=== PATIENT | female | born 1965 | race Caucasian/White ===

== ENCOUNTER 2016-12-29 12:27 | Emergency (ER) | payer BC ==
[2016-12-29 13:49] VITALS: BP 156/62
--- NOTE | 2016-12-29 14:11 | UC ---
Complaint Female HPI - HPI Summary HPI Summary: urinary urgency, dysuria and lower abdominal fullness for 2 days, patient has taken azo twice for pain. - History Of Current Complaint Chief Complaint: UCGU Stated Complaint: URINARY COMPLAINT Time Seen by Provider: 12/29/16 13:44 Hx Obtained From: Patient Hx Last Menstrual Period: 11/06 ?: No Onset/Duration: Sudden Onset, Lasting Days Timing: Constant Severity Initially: Mild Severity Currently: Mild Character: Dull, Burning, Cramping Aggravating Factor(s): Urination Alleviating Factor(s): Position - Allergies/Home Medications Allergies/Adverse Reactions: Allergies Allergy/AdvReac Type Severity Reaction Status Date / Time hay fever Allergy Coughing Uncoded 12/29/16 13:49 Home Medications: Home Medications LevoCETirizine TAB (NF) [Xyzal TAB (NF)] 5 mg PO DAILY 12/29/16 [History Confirmed 12/29/16] PMH/Surg Hx/FS Hx/Imm Hx Previously Healthy: Yes Cardiovascular History Of: Denies: Pacemaker/ICD - Surgical History Surgical History: Yes Surgery Procedure, Year, and Place: Right Rotator Cuff, 2011, [place]; , 1989, [facility] - Family History Known Family History: Positive: None Negative: Hypertension - Social History Alcohol Use: None Substance Use Type: None Smoking Status (MU): Former Smoker - Immunization History Most Recent Influenza Vaccination: Not the Season Review of Systems Constitutional: Negative Skin: Negative Eyes: Negative ENT: Negative Respiratory: Negative Cardiovascular: Negative Gastrointestinal: Negative Genitourinary: Dysuria, Frequency, Urgency Motor: Negative Neurovascular: Negative Musculoskeletal: Negative Neurological: Negative Psychological: Negative All Other Systems Reviewed And Are Negative: Yes Physical Exam Triage Information Reviewed: Yes Appearance: Well-Appearing, Well-Nourished, Pain Distress Vital Signs: Initial Vital Signs Temp 98.9 F 12/29/16 13:44 Pulse 73 12/29/16 13:44 Resp 14 12/29/16 13:44 BP 156/62 12/29/16 13:44 Pulse Ox 99 12/29/16 13:44 Vital Signs Reviewed: Yes Eye Exam: Normal Eyes: Positive: Conjunctiva Clear ENT Exam: Normal ENT: Positive: Hearing grossly normal, Pharynx normal, TMs normal Dental Exam: Normal Neck exam: Normal Neck: Positive: Supple, Nontender, No Lymphadenopathy Respiratory Exam: Normal Respiratory: Positive: Chest non-tender, Lungs clear, Normal breath sounds Cardiovascular Exam: Normal Cardiovascular: Positive: RRR, No Murmur Abdomen Description: Positive: Nontender, CVA Tenderness (R) - neg, CVA Tenderness (L) - neg Bowel Sounds: Positive: Present Musculoskeletal Exam: Normal Musculoskeletal: Positive: Strength Intact, ROM Intact, No Edema Neurological Exam: Normal Neurological: Positive: Alert Psychological Exam: Normal Skin Exam: Normal Complaint Female Dx - Course Course Of Treatment: hx obtained, exam performed, meds reveiwed, urine culture collected, started on keflex - Differential Dx/Diagnosis Differential Diagnosis/HQI/PQRI: Sexually Transmitted Disease, Ureteral Stone, Urinary Tract Infection Provider Diagnoses: UTI Discharge - Discharge Plan Condition: Stable Disposition: HOME Patient Education Materials: Urinary Tract Infection in Women (ED) Additional Instructions: Take the medication as prescribed, stop the azo in 24-048 hrs to make sure antibiotic is working. CUlture results will be back in about 2 days, we will call if there needs to be any changes to your treatment.
== END 2016-12-29 14:18 | disposition home or self-care (01) ==
LOC: UCCORT 12:27
DX: N39.0 Urinary tract infection, site not specified (principal); Z87.891 Personal history of nicotine dependence
CPT/HCPCS: 87086; 99212; G0463

== ENCOUNTER 2017-05-22 09:24 | Emergency (ER) | payer BC ==
[2017-05-22 09:51] VITALS: BP 130/98
--- NOTE | 2017-05-22 10:03 | UC ---
Respiratory Complaint HPI - HPI Summary HPI Summary: 4-5 days of coughing getting worse with chest tightness. - History of Current Complaint Chief Complaint: UCRespiratory Stated Complaint: CHEST CONGESTION Time Seen by Provider: 05/22/17 09:53 Hx Obtained From: Patient Hx Last Menstrual Period: 11/06 ?: No Onset/Duration: Gradual Onset, Worse Since - onset Severity Initially: Mild Severity Currently: Moderate Character: Cough: Nonproductive - but occasionally productive Aggravating Factors: Deep Breaths, Recumbent Position Alleviating Factors: Nothing Associated Signs And Symptoms: Positive: Dyspnea, Pleuritic Chest Pain - rarely sharp pain across the chest with coughing fits., Nasal Congestion - with post nasal drip Related History: Seasonal Allergies - Risk Factors Pulmonary Embolism Risk Factors: Negative - Allergies/Home Medications Allergies/Adverse Reactions: Allergies Allergy/AdvReac Type Severity Reaction Status Date / Time hay fever Allergy Coughing Uncoded 05/22/17 09:51 Home Medications: Home Medications Albuterol HFA INHALER* [Ventolin HFA Inhaler*] 2 puff INH Q4H PRN 05/22/17 [ History Confirmed 05/22/17] LevoCETirizine TAB (NF) [Xyzal TAB (NF)] 5 mg PO DAILY 05/22/17 [History Confirmed 05/22/17] Simvastatin [Zocor 5 MG-] 10 mg PO DAILY 05/22/17 [History Confirmed 05/22/17] PMH/Surg Hx/FS Hx/Imm Hx Endocrine History: Diabetes, Dyslipidemia Psychological History: Anxiety - resolved - Surgical History Surgical History: Yes Surgery Procedure, Year, and Place: Right Rotator Cuff, 2011, [place];. C- Section, 1989, [facility] - Family History Known Family History: Positive: Hypertension, Diabetes Negative: Cardiac Disease - Social History Occupation: Employed Full-time Lives: With Family Alcohol Use: Rare Substance Use Type: None Smoking Status (MU): Former Smoker Have You Smoked in the Last Year: No - Immunization History Most Recent Influenza Vaccination: Not the Season Review of Systems Respiratory: Shortness Of Breath, Cough Cardiovascular: Chest Pain All Other Systems Reviewed And Are Negative: Yes Physical Exam Triage Information Reviewed: Yes Appearance: Well-Appearing, No Pain Distress, Well-Nourished Vital Signs: Initial Vital Signs Temp 98.2 F 05/22/17 09:46 Pulse 75 05/22/17 09:46 Resp 14 05/22/17 09:46 BP 130/98 05/22/17 09:46 Pulse Ox 100 05/22/17 09:46 Vital Signs Reviewed: Yes Eyes: Positive: Conjunctiva Clear ENT: Positive: Pharynx normal, Nasal congestion - with allergic changes, TMs normal Neck exam: Normal Respiratory: Positive: Lungs clear, Wheezing - occasional with coughing Cardiovascular Exam: Normal Musculoskeletal Exam: Normal Neurological Exam: Normal Psychological Exam: Normal Skin Exam: Normal UC Diagnostic Evaluation - Laboratory O2 Sat by Pulse Oximetry: 100 Respiratory Course/Dx - Differential Dx/Diagnosis Differential Diagnosis/HQI/PQRI: Asthma, Laryngitis, Lower Resp Infection, Sinusitis Provider Diagnoses: Allergic rhinitis. acute bronchospasm Discharge - Discharge Plan Condition: Stable Disposition: HOME Prescriptions: Montelukast Sodium TAB* [Singulair 10 MG TAB*] 10 mg PO BEDTIME #30 tab predniSONE TAB* [Deltasone TAB*] 20 mg PO DAILY #18 tab Patient Education Materials: Allergic Rhinitis (ED), Bronchospasm (ED), Reactive Airways Disease (ED), Prednisone (By mouth), Montelukast (By mouth) Referrals: Poppy Muller MD [Primary Care Provider] - 2 Weeks (recheck breathing and allergy symptoms.)
== END 2017-05-22 10:31 | disposition home or self-care (01) ==
LOC: UCCORT 09:24
DX: J30.9 Allergic rhinitis, unspecified (principal); J98.01 Acute bronchospasm; E11.9 Type 2 diabetes mellitus without complications; E78.5 Hyperlipidemia, unspecified; Z87.891 Personal history of nicotine dependence
CPT/HCPCS: 99212; G0463

== ENCOUNTER 2017-11-02 08:57 | Emergency (ER) | payer BC ==
--- OUTSIDE RECORDS SUMMARY | 2017-11-02 09:33 | XMS REPORT ---
:1965 External Reference #:[id number] Author Organization [facility] 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 Poppy Muller MD Primary Care Physician Unavailable Payers Type Date Identification Numbers Payment Provider Subscriber Commercial Policy Number: [id number] [facility] Thomas Caicedo PayID: [id number] [address] [place] [address] Problems Date Description Provider Status Onset: 10/18/2017 Hyperlipidemia Poppy Muller MD Active Onset: 10/18/2017 Type 2 diabetes mellitus Poppy Muller MD Active Family History Date Family Member(s) Problem(s) Comments Father due to Accidental () Mother Diabetes Grandmother Diabetes Grandmother Hypertension Social History Type Date Description Comments Marital Status Lives With 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 ETOH Use Occasionally consumes alcohol Smoking Patient denies history of smoking Recreational Drug Use Denies Drug Use Daily Caffeine Patient consumes minimal amounts of caffeine Allergies, Adverse Reactions, Alerts Date Description Reaction Status Severity Comments 08/16/2012 NKDA active Medications Medication Date Status Form Strength Qnty SIG Indications Ordering Provider Allergy 04/06 Active Poppy Injections MD Yohana Simvastatin 01/07 Active Tablets 10mg 30tab take one Poppy s tablet by charly Muller in the MD evening Levocetirizine 00 Active Tablets 5mg 1 by mouth Unknown Dihydrochloride /0000 every day Nasacort Allergy Active Aerosol 55mcg/Act 1 sprays Unknown 24HR /0000 each nare every day Montelukast Active Tablets 10mg 1 daily UrielettiNelly Kristen Simvastatin 10/20 Hx Tablets 20mg 30tab take one s tablet by Yohana, - mouth once MD 01/07 at night cholesterol [place] 11/29 Hx Tablets 5-325mg 60tab 1-2 po q 4 , s hrs prn pain MD Humza Naproxen Ec 08/16 Hx Tablets 375mg 60tab [address] s mouth twice MD Humza a day after meals Cephalexin Hx Capsules 500mg take 1 Unknown capsule by mouth twice a day Immunizations CPT Code Status Date Vaccine Lot # [id number] Given 01/04/2017 Pneumovax Injection [id number] 63835 Given 10/05/2016 Influenza Virus Vaccine Split Virus Use For [id number] Individual 3Yr Older 56081 Given 08/23/2003 flu vaccination [id number] Given 08/23/2003 flu vaccination 93941 Given 07/25/1999 Influenza Virus Whole 28546 Given 07/27/1997 Influenza Virus Vaccine 02526 Given 01/08/1994 DT Vaccine Younger Than 7 Yrs Vital Signs Date Vital Result Comment 10/18/2017 BP Systolic 129 mmHg BP Diastolic 70 mmHg Heart Rate 67 /min Respiratory Rate 14 /min Height 65 inches 5'5" Weight 197.38 lb BMI (Body Mass Index) 32.8 kg/m2 BSA (Body Surface Area) 1.97 m2 O2 % BldC Oximetry 96 % 05/12/2017 BP Systolic Sitting Left Arm 124 mmHg BP Diastolic Sitting Left Arm 72 mmHg Heart Rate 78 /min Respiratory Rate 16 /min Height 65 inches 5'5" Weight 199.00 lb BMI (Body Mass Index) 33.1 kg/m2 BSA (Body Surface Area) 1.97 m2 04/06/2017 BP Systolic 125 mmHg BP Diastolic 75 mmHg Body Temperature 99.8 F Heart Rate 88 /min Respiratory Rate 16 /min Height 65 inches 5'5" Weight 197.00 lb BMI (Body Mass Index) 32.8 kg/m2 BSA (Body Surface Area) 1.97 m2 O2 % BldC Oximetry 97 % 01/04/2017 BP Systolic 133 mmHg BP Diastolic 68 mmHg Heart Rate 63 /min Height 65 inches 5'5" Weight 199.00 lb BMI (Body Mass Index) 33.1 kg/m2 BSA (Body Surface Area) 1.97 m2 10/05/2016 BP Systolic 140 mmHg BP kaleb 114/76 BP Diastolic 82 mmHg BP kaleb 114/76 Heart Rate 68 /min Height 65 inches 5'5" Weight 212.00 lb BMI (Body Mass Index) 35.3 kg/m2 BSA (Body Surface Area) 2.03 m2 11/16/2012 Heart Rate 84 /min Height 65 inches 5'5" Weight 188.00 lb 114/65 08/16/2012 Height 65 inches 5'5" Weight 178.00 lb 08/16/2012 Height 68.5 inches 5'8.50" Weight 202.00 lb 04/20/2006 Height 64.50 inches 5'4.50" Weight 196.00 lb Results Test Date Test Result H/L Range Note Comprehensive Metabolic Panel 10/12/2017 Glucose 109 mg/dL High 74-106 1 BUN 19 mg/dL High 7-18 1 Creatinine 0.8 mg/dL 0.6-1.3 1 Glom Filtration Rate, Estimate >60 mL/min >60 1 If >60 mL/min >60 1, 2 BUN/Creat 23.7 ratio 1 Sodium 141 mmol/L 136-145 1 Potassium 4.0 mmol/L 3.5-5.1 1 Chloride 106 mmol/L 98-107 1 Carbon Dioxide 29 mmol/L 21-32 1 Anion Gap 6 mEq/L Low 8-16 1 Calcium 8.8 mg/dL 8.5-10.1 1 Total Protein 7.6 g/dL 6.4-8.2 1 Albumin 4.1 g/dL 3.4-5.0 1 Globulin 3.5 g/dL 1.9-4.3 1 Alb/Glob 1.2 ratio 1 Bilirubin,Total 0.3 mg/dL 0.2-1.0 1 Sgot/Ast 14 U/L Low 15-37 1, 3 SGPT/Alt 30 U/L 12-78 1 Alkaline Phosphatase 59 U/L 45-117 1 Glycohemoglobin A1c 10/12/2017 Glycohemoglobin (A1c) 6.3 % 4.2-6.3 1, 4 eAG 134 mg/dL 1 Microalb/Creat Ratio,Random 10/12/2017 Microalbumin,Urine 20.6 mg/L < 20.0 1 Microalbumin/Creatinine Ratio 10.6 ug/mgCrt < 30.0 1 Urine Creatinine Conc 195 mg/dL 1 LDL Cholesterol Profile 10/12/2017 Cholesterol 226 mg/dL High <200 1, 5 Triglycerides 95 mg/dL <150 1, 6 HDL Cholesterol 77 mg/dL >40 1, 7 LDL-Cholesterol 130 mg/dL < 100 1, 8 CBS W/Automated Diff 10/12/2017 White Blood Count 6.1 K/uL 3.1-10.7 1 Red Blood Count 4.63 M/uL 3.90-5.40 1 Hemoglobin 13.4 gm/dL 11.6-15.8 1 Hematocrit 41.4 % 36.0-46.1 1 Mean Cell Volume 89.4 fl 80.9-99.0 1 Mean Corpuscular HGB 28.9 pg 25.9-32.7 1 Mean Corpuscular HGB Conc 32.4 g/dL 30.8-34.3 1 Platelet Count 279 K/uL 155-360 1 Red Cell Distri Width SD 45.2 fl 3-47 1 Red Cell Distri Width %CV 14.2 % 11.7-14.4 1 Mean Platelet Volume 9.7 fL 8.9-12.4 1 Neut% 38.1 % Low 40.4-72.8 1 Lymph % 50.4 % High 20.0-42.0 1 [place] % 9.7 % 4.3-13.2 1 Eo% 1.5 % 0.0-6.6 1 Bas% 0.3 % 0.0-1.1 1 Neut# 2.31 K/uL 1.8-7.0 1 Lymph # 3.06 K/uL 1.0-4.0 1 [place] # 0.59 K/uL 0.3-0.9 1 Eos # 0.09 K/uL 0.0-0.5 1 Baso # 0.02 K/uL 0.0-0.1 1 Comprehensive Metabolic Panel 05/03/2017 Glucose 118 mg/dL High 74-106 9 BUN 15 mg/dL 7-18 9 Creatinine 0.7 mg/dL 0.6-1.3 9 Glom Filtration Rate, Estimate >60 mL/min >60 9 If >60 mL/min >60 9, 10 BUN/Creat 21.4 ratio 9 Sodium 138 mmol/L 136-145 9 Potassium 4.0 mmol/L 3.5-5.1 9 Chloride 103 mmol/L 98-107 9 Carbon Dioxide 28 mmol/L 21-32 9 Anion Gap 7 mEq/L Low 8-16 9 Calcium 8.8 mg/dL 8.5-10.1 9 Total Protein 7.0 g/dL 6.4-8.2 9 Albumin 3.6 g/dL 3.4-5.0 9 Globulin 3.4 g/dL 1.9-4.3 9 Alb/Glob 1.1 ratio 9 Bilirubin,Total 0.2 mg/dL 0.2-1.0 9 Sgot/Ast 15 U/L 15-37 9 SGPT/Alt 24 U/L 12-78 9 Alkaline Phosphatase 61 U/L 45-117 9 Glycohemoglobin A1c 05/03/2017 Glycohemoglobin (A1c) 6.4 % High 4.2-6.3 9 , 11 eAG 137 mg/dL 9 LDL Cholesterol Profile 05/03/2017 Cholesterol 204 mg/dL High <200 9, 12 Triglycerides 138 mg/dL <150 9, 13 HDL Cholesterol 67 mg/dL >40 9, 14 LDL-Cholesterol 109 mg/dL < 100 9, 15 Comprehensive Metabolic Panel 01/05/2017 Glucose 103 mg/dL 74-106 16 BUN 14 mg/dL 7-18 16 Creatinine 0.8 mg/dL 0.6-1.3 16 Glom Filtration Rate, Estimate >60 mL/min >60 16 If >60 mL/min >60 16, 17 BUN/Creat 17.5 ratio 16 Sodium 141 mmol/L 136-145 16 Potassium 4.1 mmol/L 3.5-5.1 16 Chloride 105 mmol/L 98-107 16 Carbon Dioxide 29 mmol/L 21-32 16 Anion Gap 7 mEq/L Low 8-16 16 Calcium 8.3 mg/dL Low 8.5-10.1 16 Total Protein 7.0 g/dL 6.4-8.2 16 Albumin 3.6 g/dL 3.4-5.0 16 Globulin 3.4 g/dL 1.9-4.3 16 Alb/Glob 1.1 ratio 16 Bilirubin,Total 0.3 mg/dL 0.2-1.0 16 Sgot/Ast 14 U/L Low 15-37 16, 18 SGPT/Alt 23 U/L 12-78 16 Alkaline Phosphatase 62 U/L 45-117 16 Glycohemoglobin A1c 01/05/2017 Glycohemoglobin (A1c) 6.6 % High 4.2-6.3 16, 19 eAG 143 mg/dL 16 LDL Cholesterol Profile 01/05/2017 Cholesterol 200 mg/dL <200 16, 20 Triglycerides 278 mg/dL High <150 16, 21 HDL Cholesterol 49 mg/dL >40 16, 22 LDL-Cholesterol 95 mg/dL < 100 16, 23 Laboratory test finding 12/29/2016 Urine Culture SEE RESULT BELOW 24, 25 Comprehensive Metabolic 10/14/2016 Glucose 103 mg/dL 74-106 26 Panel BUN 12 mg/dL 7-18 26 Creatinine 0.8 mg/dL 0.6-1.3 26 Glom Filtration Rate, Estimate >60 mL/min >60 26 If >60 mL/min >60 26, 27 BUN/Creat 15.0 ratio 26 Sodium 141 mmol/L 136-145 26 Potassium 4.4 mmol/L 3.5-5.1 26 Chloride 106 mmol/L 98-107 26 Carbon Dioxide 30 mmol/L 21-32 26 Anion Gap 5 mEq/L Low 8-16 26 Calcium 8.6 mg/dL 8.5-10.1 26 Total Protein 7.3 g/dL 6.4-8.2 26 Albumin 3.7 g/dL 3.4-5.0 26 Globulin 3.6 g/dL 1.9-4.3 26 Alb/Glob 1.0 ratio 26 Bilirubin,Total 0.3 mg/dL 0.2-1.0 26 Sgot/Ast 20 U/L 15-37 26 SGPT/Alt 37 U/L 12-78 26 Alkaline Phosphatase 66 U/L 45-117 26 CBS W/Automated Diff 10/14/2016 White Blood Count 6.4 K/uL 3.1-10.7 26 Red Blood Count 4.49 M/uL 3.90-5.40 26 Hemoglobin 13.2 gm/dL 11.6-15.8 26 Hematocrit 39.7 % 36.0-46.1 26 Mean Cell Volume 88.4 fl 80.9-99.0 26 Mean Corpuscular HGB 29.4 pg 25.9-32.7 26 Mean Corpuscular HGB Conc 33.2 g/dL 30.8-34.3 26 Platelet Count 309 K/uL 155-360 26 Red Cell Distri Width SD 41.3 fl 3-47 26 Red Cell Distri Width %CV 13.1 % 11.7-14.4 26 Mean Platelet Volume 9.2 fL 8.9-12.4 26 Neut% 42.5 % 40.4-72.8 26 Lymph % 45.7 % High 20.0-42.0 26 [place] % 10.3 % 4.3-13.2 26 Eo% 1.2 % 0.0-6.6 26 Bas% 0.3 % 0.0-1.1 26 Neut# 2.73 K/uL 1.8-7.0 26 Lymph # 2.94 K/uL 1.0-4.0 26 [place] # 0.66 K/uL 0.3-0.9 26 Eos # 0.08 K/uL 0.0-0.5 26 Baso # 0.02 K/uL 0.0-0.1 26 Glycohemoglobin A1c 10/14/2016 Glycohemoglobin (A1c) 7.0 % High 4.2-6.3 26, 28 eAG 154 mg/dL 26 LDL Cholesterol Profile 10/14/2016 Cholesterol 232 mg/dL High <200 26 , 29 Triglycerides 159 mg/dL High <150 26, 30 HDL Cholesterol 53 mg/dL >40 26, 31 LDL-Cholesterol 147 mg/dL < 100 26, 32 Ua RFX Micro & Culture II 10/05/2016 Urine Color STRAW Yellow 33 Urine Clarity CLEAR Clear 33 Urine Glucose - Dipstick 100 mg/dL High Negative 33 Urine Bilirubin - Dipstick NEGATIVE Negative 33 Urine Ketone NEGATIVE mg/dL Negative 33 Urine Specific [place] <=1.005 Low 1.010-1.030 33 Urine Blood TRACE Negative 33 Urine PH 5.5 Low 6.5-7.5 33 Urine Protein - Dipstick NEGATIVE mg/dL Negative 33 Urine Urobilinogen - Dipstick 0.2 E.U./dL 0.2-1.0 33 Urine Nitrite - Dipstick NEGATIVE Negative 33 Urine Leuk Esterase NEGATIVE Negative 33 Microalb/Creat 10/05/2016 Microalbumin/Creatinine 44.7 ug/mgCrt < 30.0 33 Ratio,Random Ratio Urine Creatinine Conc 15 mg/dL 33 Microalbumin,Random Urine 10/05/2016 Microalbumin,Urine 6.7 mg/L < 20.0 33 1 E11.9 E78.5 2 Note: Persistent reduction for 3 months or more in an eGFR <60 mL/min/1.73 m2 defines CKD. Patients with eGFR values >/=60 mL/min/1.73 m2 may also have CKD if evidence of persistent proteinuria is present. The original MDRD equation for estimated GFR is not valid for patients less than 18 years of age. Additional information may be found at www.kdoqi.org. 3 Values below the stated reference ranges of AST and ALT can be seen in normal populations. Clinical correlation is suggested. 4 Elevated levels of HbA1c suggest the need for more aggressive treatment of glycemia. The [place] [employer] recommends that a primary goal of therapy should be a HbA1c of <7% and that physicians should re-evaluate the treatment regimen in patients with HbA1c values consistently >8%. 5 Reference Guidelines*: Desirable: ........... < 200 mg/dL Borderline High: ..... 200-239 mg/dL High: ................ >=240 mg/dL * The National Cholesterol Education Program (NCEP) 6 Reference Guidelines*: Normal: ............. < 150 mg/dL Borderline High: .... 150-199 mg/dL High: ............... 200-499 mg/dL Very High: .......... > 500 mg/dL * Source: National Cholesterol Education Program (NCEP) 7 Reference Guidelines*: Low HDL: ..... < 40 mg/dL Normal: ..... 40-60 mg/dL Desirable: ... > 60 mg/dL *The National Cholesterol Education Program(NCEP) 8 Reference Guidelines*: Optimal:........... <100 mg/dL Near Optimal....... 100-129 mg/dL Borderline High.... 130-159 mg/dL High............... 160-189 mg/dL Very High.......... >=190 mg/dL * Source: National Cholesterol Education Program (NCEP) 9 E78.5 E11.9 E66.09 10 Note: Persistent reduction for 3 months or more in an eGFR <60 mL/min/1.73 m2 defines CKD. Patients with eGFR values >/=60 mL/min/1.73 m2 may also have CKD if evidence of persistent proteinuria is present. The original MDRD equation for estimated GFR is not valid for patients less than 18 years of age. Additional information may be found at www.kdoqi.org. 11 Elevated levels of HbA1c suggest the need for more aggressive treatment of glycemia. The [place] [employer] recommends that a primary goal of therapy should be a HbA1c of <7% and that physicians should re-evaluate the treatment regimen in patients with HbA1c values consistently >8%. 12 Reference Guidelines*: Desirable: ........... < 200 mg/dL Borderline High: ..... 200-239 mg/dL High: ................ >=240 mg/dL * The National Cholesterol Education Program (NCEP) 13 Reference Guidelines*: Normal: ............. < 150 mg/dL Borderline High: .... 150-199 mg/dL High: ............... 200-499 mg/dL Very High: .......... > 500 mg/dL * Source: National Cholesterol Education Program (NCEP) 14 Reference Guidelines*: Low HDL: ..... < 40 mg/dL Normal: ..... 40-60 mg/dL Desirable: ... > 60 mg/dL *The National Cholesterol Education Program(NCEP) 15 Reference Guidelines*: Optimal:........... <100 mg/dL Near Optimal....... 100-129 mg/dL Borderline High.... 130-159 mg/dL High............... 160-189 mg/dL Very High.......... >=190 mg/dL * Source: National Cholesterol Education Program (NCEP) 16 E11.9 E78.5 17 Note: Persistent reduction for 3 months or more in an eGFR <60 mL/min/1.73 m2 defines CKD. Patients with eGFR values >/=60 mL/min/1.73 m2 may also have CKD if evidence of persistent proteinuria is present. The original MDRD equation for estimated GFR is not valid for patients less than 18 years of age. Additional information may be found at www.kdoqi.org. 18 Values below the stated reference ranges of AST and ALT can be seen in normal populations. Clinical correlation is suggested. 19 Elevated levels of HbA1c suggest the need for more aggressive treatment of glycemia. The [place] [employer] recommends that a primary goal of therapy should be a HbA1c of <7% and that physicians should re-evaluate the treatment regimen in patients with HbA1c values consistently >8%. 20 Reference Guidelines*: Desirable: ........... < 200 mg/dL Borderline High: ..... 200-239 mg/dL High: ................ >=240 mg/dL * The National Cholesterol Education Program (NCEP) 21 Reference Guidelines*: Normal: ............. < 150 mg/dL Borderline High: .... 150-199 mg/dL High: ............... 200-499 mg/dL Very High: .......... > 500 mg/dL * Source: National Cholesterol Education Program (NCEP) 22 Reference Guidelines*: Low HDL: ..... < 40 mg/dL Normal: ..... 40-60 mg/dL Desirable: ... > 60 mg/dL *The National Cholesterol Education Program(NCEP) 23 Reference Guidelines*: Optimal:........... <100 mg/dL Near Optimal....... 100-129 mg/dL Borderline High.... 130-159 mg/dL High............... 160-189 mg/dL Very High.......... >=190 mg/dL * Source: National Cholesterol Education Program (NCEP) 24 [id number] 25 SEE RESULT BELOW Name: SHANNA CAICEDO : [address]: Boston Richardson MD Acct: [id number] Unit: [id number] AGE: 51 Location: [facility] Re12/29/16 SEX: F Status: DEP ER SPEC: [id number] JAMIL: 12/29/16-[address] [facility] [address]: Sofia Tubbs NP REQ: [id number] RECD: 12/29/16 STATUS: RITO SEGUNDO DR: [facility] Poppy Muller MD _ SOURCE: URINE SPDESC: ORDERED: Urine Culture COMMENTS: [id number] Procedure Result Reported Site Urine Culture Final 01/01/17- 818 ML Organism 1 [facility]ROBACTER KOSERI Pinch Count 10-25,000 (Moderate) CFU/ML Organism 2 NORMAL [place] Pinch Count 1-10,000 (Few) CFU/ML 1. [facility]ROBACTER KOSERI M.I.C. RX --------- ------ Cefazolin <=4 S Cefepime <=1 S Ceftriaxone <=1 S Ciprofloxacin <=0.25 S Gentamicin <=1 S Levofloxacin <=0.12 S Meropenem <=0.25 S Nitrofurantoin 32 S Tetracycline <=1 S Pipercillin/Tazobactam <=4 S Trimethoprim/Sulfamethoxazole <=20 S Amoxicillin/Clavulanic Acid <=2 S Aztreonam <=1 S Contact the Microbiology Department for any additional antibiotic reporting. * ML - MAIN LAB ([facility]) . END OF REPORT * ML=Testing performed at Main Lab DEPARTMENT OF PATHOLOGY, [address] [place] [address] Dusty Mckinley M.D. Director [facility] # [id number] 26 E11.9 27 Note: Persistent reduction for 3 months or more in an eGFR <60 mL/min/1.73 m2 defines CKD. Patients with eGFR values >/=60 mL/min/1.73 m2 may also have CKD if evidence of persistent proteinuria is present. The original MDRD equation for estimated GFR is not valid for patients less than 18 years of age. Additional information may be found at www.kdoqi.org. 28 Elevated levels of HbA1c suggest the need for more aggressive treatment of glycemia. The [place] [employer] recommends that a primary goal of therapy should be a HbA1c of <7% and that physicians should re-evaluate the treatment regimen in patients with HbA1c values consistently >8%. 29 Reference Guidelines*: Desirable: ........... < 200 mg/dL Borderline High: ..... 200-239 mg/dL High: ................ >=240 mg/dL * The National Cholesterol Education Program (NCEP) 30 Reference Guidelines*: Normal: ............. < 150 mg/dL Borderline High: .... 150-199 mg/dL High: ............... 200-499 mg/dL Very High: .......... > 500 mg/dL * Source: National Cholesterol Education Program (NCEP) 31 Reference Guidelines*: Low HDL: ..... < 40 mg/dL Normal: ..... 40-60 mg/dL Desirable: ... > 60 mg/dL *The National Cholesterol Education Program(NCEP) 32 Reference Guidelines*: Optimal:........... <100 mg/dL Near Optimal....... 100-129 mg/dL Borderline High.... 130-159 mg/dL High............... 160-189 mg/dL Very High.......... >=190 mg/dL * Source: National Cholesterol Education Program (NCEP) 33 R82.99 J30.9 E11.9 Procedures Date CPT Code Description Status 06/28/2017 Mammogram Completed 03/02/2016 Mammogram Completed 02/27/2015 85530 Anesthesia, Hysteroscopy, Hystersalpingography Completed 11/25/2012 46145 Lidia Procedure distal claviculectomy including Completed distal articula 11/25/2012 73686 Arthoscopy Repair of Slap lesion Completed 11/25/2012 25492 Arthroscopy with rotator cuff repair Completed 09/27/2012 21861 Asp./Injection major joint Completed 08/16/201233185 Asp./Injection major joint Completed 12/02/2000 27703 Post- Care Only Completed 10/16/2000 25696 Vaginal Delivery [facility] Completed 10/15/2000 98025 Non-Stress Test (NST) Completed 10/13/2000 82907 Non-Stress Test (NST) Completed 10/08/2000 95294 Non-Stress Test (NST) Completed 09/22/2000 99196 Non-Stress Test (NST) Completed 09/10/2000 72231 Non-Stress Test (NST) Completed 09/01/2000 12236 Non-Stress Test (NST) Completed 10/14/1992 66097 Exc Benign Lesion Face/1.1-2.0 CM Completed 08/29/1992 40228 Vaginal Delivery [facility] Completed Encounters Type Date Location Provider CPT E/M Dx Office Visit 05/12/2017 11:20a [place] [address] E11.9 E78.5 E66.09 Office Visit 04/06/2017 10:40a [place] [address] M25.551 Office Visit 01/04/2017 9:20a [place] [address] E11.9 E78.5 E66.09 Z23 Office Visit 10/05/2016 10:00a [place] [address] J30.9 R59.9 E11.9 E66.09 R82.99 Z23 Plan of Care 10/18/2017 - Poppy Muller MDE11.9 Type 2 diabetes mellitus without complicationsNew Labs:Comprehensive Metabolic PanelGlycohemoglobin [id number]:- hgbA1c decreased from 6.6 to 6.3%-Diet controlled -Has started healthier diet and exercise -Extensive discussion on diet and exercise-urine microalbumin around 20-beneficial impact of exercise on mood, blood sugars, cholesterol and blood pressure -Continue to monitor [id number] Hyperlipidemia, unspecifiedNew Labs:LDL Cholesterol ProfileComments:-LDL initially 142->95->109->130 goal LDL <100 since patient is a DM -Restart simvastatin, LDL has been off for the past 6 weeks-On simvastatin 10mg-Patient has been exercising and improving her diet-recheck [id number] Other obesity due to excess caloriesComments:-extensive discussion on diet and lifestyle modification- CytuzcvoaW71.9 Viral wart, unspecifiedComments:-referral to DermReferral: Marilyn Jerome M.D., Internal MedicineAllFollow up:f/u 4 months fasting blood work -Notes from urology and SENIOR H[employer] REPRESENTATIVE
[2017-11-02 09:52] VITALS: BP 148/81
--- NOTE | 2017-11-02 10:28 | RAD ---
Indication: Left wrist pain 3 views of the wrist demonstrates no fracture. No other bone or joint abnormality is identified. IMPRESSION: NO FRACTURE OF THE WRIST IS NOTED.
--- NOTE | 2017-11-02 10:44 | UC ---
Hand/Wrist HPI - HPI Summary HPI Summary: left wrist pain x 3 days pain is sever, increase pain with wrist movement + swelling, no erythema, no known injury - History Of Current Complaint Chief Complaint: UCUpperExtremity Stated Complaint: LEFT WRIST INJURY Time Seen by Provider: 11/02/17 09:54 Hx Obtained From: Patient Hx Last Menstrual Period: 11/06 Onset/Duration: Gradual Onset, Lasting Days - 3, Still Present Severity Initially: Moderate Severity Currently: Moderate Pain Intensity: 3 Character Of Pain: Throbbing Aggravating Factor(s): Movement, Lifting, Flexion, Extension, Internal/External Rotation, Twisting Alleviating Factor(s): Rest, Ice Associated Signs And Symptoms: Positive: Swelling, Weakness. Negative: Redness , Bruising, Fever, Numbness/Tingling - Allergies/Home Medications Allergies/Adverse Reactions: Allergies Allergy/AdvReac Type Severity Reaction Status Date / Time hay fever Allergy Coughing Uncoded 11/02/17 09:52 PMH/Surg Hx/FS Hx/Imm Hx Previously Healthy: Yes - Surgical History Surgical History: Yes Surgery Procedure, Year, and Place: Right Rotator Cuff, 2011, [facility];. C- Section, 1989, [facility] - Family History Known Family History: Positive: Hypertension, Diabetes Negative: Cardiac Disease - Social History Alcohol Use: Rare Substance Use Type: None Smoking Status (MU): Former Smoker Have You Smoked in the Last Year: No - Immunization History Most Recent Influenza Vaccination: Not the Season Review of Systems Constitutional: Negative Skin: Negative Eyes: Negative ENT: Negative Is Patient Immunocompromised?: No All Other Systems Reviewed And Are Negative: Yes Physical Exam Triage Information Reviewed: Yes Appearance: Well-Appearing, No Pain Distress, Well-Nourished Vital Signs: Initial Vital Signs Temp 99.0 F 11/02/17 09:45 Pulse 71 11/02/17 09:45 Resp 18 11/02/17 09:45 BP 148/81 11/02/17 09:45 Pulse Ox 99 11/02/17 09:45 Vital Signs Reviewed: Yes Eyes: Positive: Conjunctiva Clear ENT: Positive: Normal ENT inspection, Hearing grossly normal, Pharynx normal Neck exam: Normal Neck: Positive: Supple, Nontender, No Lymphadenopathy Respiratory: Positive: Chest non-tender, Lungs clear, Normal breath sounds Cardiovascular: Positive: RRR, No Murmur, Pulses Normal Musculoskeletal: Positive: Other: - left Wrist : + diffuse tenderness, + swelling, no erythe, sever pain with any movements limited strength Skin Exam: Normal Hand/Wrist Course/Dx - Differential Dx/Diagnosis Provider Diagnoses: left wirst tendonitis Discharge - Discharge Plan Condition: Stable Disposition: HOME Prescriptions: Naproxen [Naproxen 500 mg] 500 mg PO BID #20 tablet Patient Education Materials: Tendinitis (ED) Referrals: James Osman MD [Medical Doctor] - 7 Days Poppy Muller MD [Primary Care Provider] - Additional Instructions: cont. with rest, ice, Naproxen 2 x per day use wrist splint at all time (pt has her own splint ) follow up with ortho in one week if not better
== END 2017-11-02 10:45 | disposition home or self-care (01) ==
LOC: UCCORT 08:57
DX: M77.9 Enthesopathy, unspecified (principal); Z87.891 Personal history of nicotine dependence
CPT/HCPCS: 99212; G0463

== ENCOUNTER 2019-09-19 16:04 | Emergency (ER) | payer BC ==
[2019-09-19 16:37] VITALS: BP 131/62
--- NOTE | 2019-09-19 17:16 | UC ---
Complaint Female HPI - HPI Summary HPI Summary: Pt presents with c/o sudden onset of dysuria that began this morning. Pt also c /o ST that began this morning. Pt reports that she recently traveled to [facility]. - History Of Current Complaint Chief Complaint: UCGeneralIllness Stated Complaint: URINARY CONCERN,ST Time Seen by Provider: 09/19/19 16:30 Hx Obtained From: Patient Hx Last Menstrual Period: 11/06 ?: No Onset/Duration: Sudden Onset, Lasting Days, Still Present Timing: Constant Severity Initially: Mild Severity Currently: Mild Pain Intensity: 2 Character: Dull, Burning Aggravating Factor(s): Urination Alleviating Factor(s): Nothing Associated Signs And Symptoms: Positive: Negative - Risk Factors Ectopic Risk Factor: Negative Ovarian Torsion Risk Factor: Negative - Allergies/Home Medications Allergies/Adverse Reactions: Allergies Allergy/AdvReac Type Severity Reaction Status Date / Time hay fever Allergy Coughing Uncoded 09/19/19 16:37 Home Medications: Home Medications Pumpkin Seed Extract/Soy Germ [Azo Bladder Control Capsule] 1 cap PO DAILY 09/19 [History Confirmed 09/19/19] PMH/Surg Hx/FS Hx/Imm Hx Previously Healthy: Yes - Surgical History Surgical History: Yes Surgery Procedure, Year, and Place: Right Rotator Cuff, 2011, [place];. C- Section, 1989, [facility] - Family History Known Family History: Positive: Hypertension, Diabetes Negative: Cardiac Disease - Social History Occupation: Employed Full-time Lives: With Family Alcohol Use: Rare Substance Use Type: None Smoking Status (MU): Former Smoker Have You Smoked in the Last Year: No - Immunization History Most Recent Influenza Vaccination: Not the Season Review of Systems All Other Systems Reviewed And Are Negative: Yes Constitutional: Positive: Fatigue Skin: Positive: Negative Eyes: Positive: Negative ENT: Positive: Negative Respiratory: Positive: Negative Cardiovascular: Positive: Negative Gastrointestinal: Positive: Negative Genitourinary: Positive: Dysuria, Urgency Motor: Positive: Negative Neurovascular: Positive: Negative Musculoskeletal: Positive: Negative Neurological: Positive: Negative Psychological: Positive: Negative Is Patient Immunocompromised?: No Physical Exam Triage Information Reviewed: No Appearance: Well-Appearing Vital Signs: Initial Vital Signs Temp 97 F 09/19/19 16:32 Pulse 93 09/19/19 16:32 Resp 16 09/19/19 16:32 BP 131/62 09/19/19 16:32 Pulse Ox 99 09/19/19 16:32 Vital Signs Reviewed: Yes Eye Exam: Normal ENT Exam: Normal Dental Exam: Normal Neck exam: Normal Respiratory Exam: Normal Cardiovascular Exam: Normal Abdominal Exam: Normal Musculoskeletal Exam: Normal Neurological Exam: Normal Psychological Exam: Normal Skin Exam: Normal Complaint Female Dx - Differential Dx/Diagnosis Differential Diagnosis/HQI/PQRI: Urinary Tract Infection, Other - sore throat Provider Diagnosis: Dysuria, Sore throat (viral) Discharge ED - Sign-Out/Discharge Documenting (check all that apply): Patient Departure All imaging exams completed and their final reports reviewed: No Studies - Discharge Plan Condition: Stable Disposition: HOME Prescriptions: Cephalexin CAP* [Keflex 500 CAP*] 500 mg PO Q12H #14 cap Patient Education Materials: Pharyngitis (ED), Dysuria (ED) Referrals: Poppy Muller MD [Primary Care Provider] - If Needed - Billing Disposition and Condition Condition: STABLE Disposition: Home - Attestation Statements Provider Attestation: Per institutional requirements, I have reviewed the chart, however, I was not consulted specifically or made aware of this patient by the midlevel provider. I did not personally evaluate, interact with , or disposition this patient.
== END 2019-09-19 17:20 | disposition home or self-care (01) ==
LOC: UCCORT 16:04
DX: R30.0 Dysuria (principal); J02.9 Acute pharyngitis, unspecified; R53.83 Other fatigue; Z87.891 Personal history of nicotine dependence; Z91.09 Other allergy status, other than to drugs and biological substances
CPT/HCPCS: 87077; 87086; 87186; 87651; 99212; G0463

== ENCOUNTER 2019-10-31 10:03 | Emergency (ER) | payer BC ==
[2019-10-31 11:03] VITALS: BP 151/71
--- NOTE | 2019-10-31 11:36 | UC ---
Respiratory Complaint HPI - HPI Summary HPI Summary: cough x 7 days cough is productive with yellow sputum worse with deep breathing, better with rest, + nasal congestion , pnd, no fever, no chills, no sob, no sore throat, no body aches denies any chest pain - History of Current Complaint Chief Complaint: UCRespiratory Stated Complaint: COUGH/CHEST CONGESTION Time Seen by Provider: 10/31/19 10:59 Hx Obtained From: Patient Hx Last Menstrual Period: 11/06 ?: No Onset/Duration: Gradual Onset, Lasting Days - 7, Still Present Timing: Constant Severity Initially: Moderate Severity Currently: Moderate Pain Intensity: 0 Character: Cough: Productive Aggravating Factors: Exertion, Deep Breaths Alleviating Factors: Nothing Associated Signs And Symptoms: Positive: URI, Nasal Congestion. Negative: Dyspnea, Fever, Chills, Wheezing, Hemoptysis, Dizziness, Calf Pain, Calf Swelling, Hoarseness - Allergies/Home Medications Allergies/Adverse Reactions: Allergies Allergy/AdvReac Type Severity Reaction Status Date / Time hay fever Allergy Coughing Uncoded 10/31/19 11:01 Home Medications: Home Medications Dm/Acetaminophen/Doxylamine [Vicks Nyquil Cold & Flu N] 30 ml PO Q6H PRN [History Confirmed 10/31/19] PMH/Surg Hx/FS Hx/Imm Hx - Additional Past Medical History Additional PMH: Allergies, Anxiety, Pneumonia 03/2016 Respiratory History: Pneumonia Psychological History: Anxiety - Surgical History Surgical History: Yes Surgery Procedure, Year, and Place: Right Rotator Cuff, 2011, [place]; , 1989, [place] - Family History Known Family History: Positive: Hypertension, Diabetes Negative: Cardiac Disease - Social History Alcohol Use: Rare Substance Use Type: None Smoking Status (MU): Former Smoker Length of Time of Smoking/Using Tobacco: 1/2 PPD x 23 Years Have You Smoked in the Last Year: No When Did the Patient Quit Smoking/Using Tobacco: 1992 - Immunization History Most Recent Influenza Vaccination: Not the Season Review of Systems All Other Systems Reviewed And Are Negative: Yes Constitutional: Positive: Negative Skin: Positive: Negative ENT: Positive: Nasal Discharge Respiratory: Positive: Cough Cardiovascular: Negative: Chest Pain Is Patient Immunocompromised?: No Physical Exam Triage Information Reviewed: Yes Appearance: Well-Appearing, No Pain Distress, Well-Nourished Vital Signs: Initial Vital Signs Temp 97.6 F 10/31/19 10:57 Pulse 86 10/31/19 10:57 Resp 20 10/31/19 10:57 BP 151/71 10/31/19 10:57 Pulse Ox 98 10/31/19 10:57 Vital Signs Reviewed: Yes Eye Exam: Normal Eyes: Positive: Conjunctiva Clear ENT: Positive: Normal ENT inspection, Hearing grossly normal, Pharynx normal, TMs normal Dental Exam: Normal Neck: Positive: Supple, Nontender, No Lymphadenopathy Respiratory: Positive: Chest non-tender, Lungs clear, Normal breath sounds, No respiratory distress Cardiovascular: Positive: No Murmur, Other: - irregular Abdominal Exam: Normal Diagnostics - EKG Cardiac Rate: Tachycardia, Other Rate - ventricular trigeminy Cardiac Rhythm: Sinus: Normal Ectopy: None ST Segment: Normal Respiratory Course/Dx - Differential Dx/Diagnosis Provider Diagnosis: Bronchitis, Arrhythmia Discharge ED - Sign-Out/Discharge Documenting (check all that apply): Patient Departure All imaging exams completed and their final reports reviewed: No Studies - Discharge Plan Condition: Stable Disposition: HOME Prescriptions: Benzonatate CAP* [Tessalon 100 MG CAP*] 100 mg PO TID PRN #15 cap PRN Reason: Cough Patient Education Materials: Acute Bronchitis (ED) Referrals: Liset Jennings CNM [Primary Care Provider] - 7 Days - Billing Disposition and Condition Condition: STABLE Disposition: Home
== END 2019-10-31 11:39 | disposition home or self-care (01) ==
LOC: UCCORT 10:03
DX: J40 Bronchitis, not specified as acute or chronic (principal); I49.9 Cardiac arrhythmia, unspecified; R09.89 Other specified symptoms and signs involving the circulatory and respiratory systems; Z87.891 Personal history of nicotine dependence; Z87.01 Personal history of pneumonia (recurrent); Z91.09 Other allergy status, other than to drugs and biological substances
CPT/HCPCS: 93005; 99212; G0463